=== PATIENT | male | born 1975 | race Caucasian/White ===

== ENCOUNTER 2021-06-03 01:51 | Emergency (ER) | payer SELFPAY ==
[~2021-06-03] VITALS: Ht 76 cm; Wt 127.0 kg
[2021-06-03] MEDS ORDERED: ONDANSETRON 4 MG/2 ML (SDV) Z0FRAN IVP ONE (02:15)
[2021-06-03] MEDS ORDERED: NS IV 1000 ML 1,000 ML IV STA (02:15)
--- NOTE | 2021-06-03 02:15 | ED General ---
General Chief Complaint: Abdominal/GI Problems Stated Complaint: VERTIGO W/ EMESIS Nursing Triage Note: pt reports waking up one hour before arrival with ringing in his ears. reports attempting to get out of bed and falling d/y dizziness. pt reports he is dizzy and the dizziness is making him vomit. reports the dizziness is only present when he opens his eyes History of Present Illness Date Seen by Provider: Jun 03, 2021 Time Seen by Provider: 02:12 Initial Comments 46-year-old male presents with tinnitus started approximate hour ago. Patient reports he was sleeping when he awoke with a ringing of his ears. States then he attempted to get a bed he was dizzy and had a fall because of it. He reports that the dizziness is more present when he opens his eyes. That it makes him vomit. He is unable to describe the dizziness to me. Patient denies any recent illness. He does have a history of hypertension but has not been on his hydrochlorothiazide for about a month. Due to a physician change and has not got it refilled Allergies and Home Medications Allergies Coded Allergies: No Known Drug Allergies (Unverified , 06/03/21) Patient Home Medication List Home Medication List Reviewed: Yes Review of Systems Review of Systems Constitutional: No chills; dizziness; No fever EENTM: see HPI; No ear pain Respiratory: No cough, No short of breath Cardiovascular: No chest pain, No palpitations Gastrointestinal: No abdominal pain; nausea, vomiting Musculoskeletal: no symptoms reported Skin: no symptoms reported Psychiatric/Neurological: No Symptoms Reported Hematologic/Lymphatic: No Symptoms Reported Past Ebjodua-Gyejfr-Bpiugn Hx Patient Social History Tobacco Use?: No Substance use?: No Alcohol Use?: No Pt feels they are or have been: No Immunizations Up To Date Influenza Vaccine Up-to-Date: No; Not Current Physical Exam Vital Signs Vital Signs - First Documented 06/03/21 02:03 Pulse 63 Resp 16 B/P (MAP) 139/87 Pulse Ox 96 O2 Delivery Room Air Capillary Refill : Height, Weight, BMI Height: '" Weight: lbs. oz. kg; 219.00 BMI Method: General Appearance: No Apparent Distress, WD/WN HEENT: Moist Mucous Membranes, Other (left Tm normal, right Tm difficult to visualize due to moderate wax. ) Respiratory: Lungs Clear, Normal Breath Sounds Cardiovascular: Regular Rate, Rhythm, No Edema, Normal Peripheral Pulses Gastrointestinal: Non Tender, Soft Extremity: Normal Capillary Refill, Normal Inspection Neurologic/Psychiatric: Alert, Oriented x3; No Aphasia, No Facial Droop, No Motor Weakness Skin: Normal Color, Warm/Dry Progress/Results/Core Measures Suspected Sepsis SIRS Temperature: Pulse: Respiratory Rate: Laboratory Tests 06/03/21 02:10: White Blood Count 10.8 Blood Pressure / Mean: 104 Laboratory Tests 06/03/21 02:10: Creatinine 0.89, Platelet Count 262, Total Bilirubin 0.5 Results/Orders Lab Results Laboratory Tests Test 06/03/21 02:10 Range/Units White Blood Count 10.8 4.3-11.0 10^3/uL Red Blood Count 5.14 4.30-5.52 10^6/uL Hemoglobin 15.6 13.3-17.7 g/dL Hematocrit 46 40-54 % Mean Corpuscular Volume 89 80-99 fL Mean Corpuscular Hemoglobin 30 25-34 pg Mean Corpuscular Hemoglobin Concent 34 32-36 g/dL Red Cell Distribution Width 12.7 10.0-14.5 % Platelet Count 262 130-400 10^3/uL Mean Platelet Volume 10.8 9.0-12.2 fL Immature Granulocyte % (Auto) 0 % Neutrophils (%) (Auto) 43 42-75 % Lymphocytes (%) (Auto) 48 H 12-44 % Monocytes (%) (Auto) 8 0-12 % Eosinophils (%) (Auto) 1 0-10 % Basophils (%) (Auto) 0 0-10 % Neutrophils # (Auto) 4.6 1.8-7.8 10^3/uL Lymphocytes # (Auto) 5.1 H 1.0-4.0 10^3/uL Monocytes # (Auto) 0.8 0.0-1.0 10^3/uL Eosinophils # (Auto) 0.1 0.0-0.3 10^3/uL Basophils # (Auto) 0.0 0.0-0.1 10^3/uL Immature Granulocyte # (Auto) 0.0 0.0-0.1 10^3/uL Sodium Level 139 135-145 MMOL/L Potassium Level 3.6 3.6-5.0 MMOL/L Chloride Level 102 98-107 MMOL/L Carbon Dioxide Level 23 21-32 MMOL/L Anion Gap 14 5-14 MMOL/L Blood Urea Nitrogen 11 7-18 MG/DL Creatinine 0.89 0.60-1.30 MG/DL Estimat Glomerular Filtration Rate 106 BUN/Creatinine Ratio 12 Glucose Level 123 H 70-105 MG/DL Calcium Level 9.0 8.5-10.1 MG/DL Corrected Calcium 8.7 8.5-10.1 MG/DL Magnesium Level 1.8 1.6-2.4 MG/DL Total Bilirubin 0.5 0.1-1.0 MG/DL Aspartate Amino Transf (AST/SGOT) 19 5-34 U/L Alanine Aminotransferase (ALT/SGPT) 27 0-55 U/L Alkaline Phosphatase 58 40-136 U/L Troponin I < 0.30 <0.30 NG/ML C-Reactive Protein < 0.30 <0.50 MG/DL Total Protein 7.6 6.4-8.2 GM/DL Albumin 4.4 3.2-4.5 GM/DL Serum Alcohol < 10 <10 MG/DL My Orders Orders - MCGUIRE,YUE L DO Alcohol (06/03/21 02:15) Cbc With Automated Diff (06/03/21 02:15) Comprehensive Metabolic Panel (06/03/21 02:15) Magnesium (06/03/21 02:15) Ua Culture If Indicated (06/03/21 02:15) Crp Fs (06/03/21 02:15) Troponin I Fs (06/03/21 02:15) Influenza A & B Antigens (06/03/21 02:15) Ct Head Wo (06/03/21 02:15) Ondansetron Injection (Zofran Injectio (06/03/21 02:15) Ns Iv 1000 Ml (Sodium Chloride 0.9%) (06/03/21 02:15) Meclizine Tablet (Antivert Tablet) (06/03/21 03:15) Medications Given in ED Current Medications Medications Dose Ordered Sig/Meghna Route Start Time Stop Time Status Last Admin Dose Admin Meclizine HCl 25 mg ONCE ONCE PO 06/03/21 03:15 06/03/21 03:16 DC 06/03/21 03:05 25 MG Ondansetron HCl 4 mg ONCE ONCE IVP 06/03/21 02:15 06/03/21 02:22 DC 06/03/21 02:26 4 MG Vital Signs/I&O 06/03/21 06/03/21 02:03 02:43 Pulse 63 59 Resp 16 16 B/P (MAP) 139/87 133/79 Pulse Ox 96 99 O2 Delivery Room Air Room Air Capillary Refill : Blood Pressure Mean: 104 Progress Note : Progress Note Patient symptoms improved while he was here in the ER. At this time he has no acute findings on head CT or labs. Patient with a nonspecific dizziness. Patient was very gruff with both me and staff and further HPI was limited. Recommended the use meclizine [id number] as directed on package and follow-up with his primary care provider if symptoms not improving or become recurrent ECG Initial ECG Impression Date: Jun 03, 2021 Initial ECG Impression Time: 02:19 Initial ECG Rate: 64 Initial ECG Rhythm: Normal Sinus Initial ECG Intervals: Normal Initial ECG Impression: Normal Diagnostic Imaging Diagonstic Imaging: CT Plain Films/CT/US/NM/MRI: head Comments normal ct head [facility]ed[facility] Imp[facility] Primary Impression: Vertigo Additional Impression: Tinnitus Qualified Codes: H93.19 - Tinnitus, unspecified ear Disposition: 01 HOME, SELF-CARE Condition: Stable Departure-Patient Inst. Referrals: NO,LOCAL PHYSICIAN (PCP/Family) Primary Care Physician Patient Instructions: Dizziness, Adult ED, Vertigo ED, Tinnitus (Ringing in the Ears), Labyrinthitis Add. Discharge Instructions: [id number] meclizine as instructed on package Follow-up with your primary care provider if symptoms or not improving over the next 3 to 4 days for reevaluation and further outpatient testing All discharge instructions reviewed with patient and/or family. Voiced understanding. YUE MCGUIRE DO Jun 03, 2021 02:15
[2021-06-03 02:29] LABS: BASOPHILS % (AUTO) 0 % (0-10); EOSINOPHILS # (AUTO) 0.1 10^3/uL (0.0-0.3); EOSINOPHILS % (AUTO) 1 % (0-10); HEMATOCRIT 46 % (40-54); HEMOGLOBIN 15.6 g/dL (13.3-17.7); LYMPHOCYTES # (AUTO) 5.1 10^3/uL (1.0-4.0); LYMPHOCYTES % (AUTO) 48 % (12-44); MEAN CORPUSCULAR HEMOGLOBIN 30 pg (25-34); MEAN CORPUSCULAR HGB CONC 34 g/dL (32-36); MEAN CORPUSCULAR VOLUME 89 fL (80-99); MEAN PLATELET VOLUME 10.8 fL (9.0-12.2); MONOCYTES # (AUTO) 0.8 10^3/uL (0.0-1.0); MONOCYTES % (AUTO) 8 % (0-12); NEUTROPHILS # (AUTO) 4.6 10^3/uL (1.8-7.8); NEUTROPHILS % (AUTO) 43 % (42-75); PLATELET COUNT 262 10^3/uL (130-400); WHITE BLOOD COUNT 10.8 10^3/uL (4.3-11.0)
[2021-06-03 02:48] LABS: CARBON DIOXIDE 23 MMOL/L (21-32); CHLORIDE 102 MMOL/L (98-107); POTASSIUM 3.6 MMOL/L (3.6-5.0); SODIUM 139 MMOL/L (135-145)
[2021-06-03 02:49] LABS: ALANINE AMINOTRANSFERASE 27 U/L (0-55); ALBUMIN 4.4 GM/DL (3.2-4.5); ALKALINE PHOSPHATASE 58 U/L (40-136); BILIRUBIN,TOTAL 0.5 MG/DL (0.1-1.0); BUN/CREATININE RATIO 12; CREATININE SERUM 0.89 MG/DL (0.60-1.30); GFR ESTIMATED 106; GLUCOSE 123 MG/DL (70-105); MAGNESIUM 1.8 MG/DL (1.6-2.4); TOTAL PROTEIN 7.6 GM/DL (6.4-8.2)
[2021-06-03] MEDS ORDERED: MECLIZINE 25 MG (ANTIVERT) TAB PO ONE (03:15)
[2021-06-03 03:25] VITALS: BP 133/79
--- NOTE | 2021-06-03 06:05 | Diagnostic Imaging Report ---
INDICATION: dizziness vertigo with emesis. TECHNIQUE: Routine non contrast-enhanced axial images were obtained from the skull base to the vertex. Auto Exposure Controls were utilized during the CT exam to meet ALARA standards for radiation dose reduction COMPARISON: None. FINDINGS: The ventricles and cortical sulci are normal in size and contour. There is no midline shift or mass-effect. No acute intra-axial hemorrhage is seen. There are no abnormal areas of increased or decreased density to suggest acute hemorrhage or edema. No extra-axial masses or collections are present. The bony calvarium is intact. The visualized paranasal sinuses are unremarkable. The mastoid air cells are clear. IMPRESSION: 1. No acute intracranial abnormality. No CT evidence of mass, acute infarct or intracranial hemorrhage. Dictated by: Dictated on workstation # [id number]
== END 2021-06-03 03:25 | disposition home or self-care (01) ==
LOC: ER FS 01:55
DX: R42 Dizziness and giddiness (principal); H93.11 Tinnitus, right ear
CPT/HCPCS: 36415; 70450; 80053; 83735; 84484; 85025; 86141; 93005; 99284; G0480; 80320